=== PATIENT | male | born 1990 | race Hispanic/Latino ===

== ENCOUNTER 2019-04-15 22:37 | Emergency (ER) | payer SELFPAY ==
[2019-04-15] MEDS ORDERED: FENTANYL CITR 100 MCG/2 ML ONE (23:33)
--- NOTE | 2019-04-16 02:18 | ER ---
Nurse's Notes [facility] Name: Ananda Hager Age: 28 yrs Sex: Male : 1990 Arrival Date: 04/15/2019 Time: 22:38 Bed 20 Private MD: Diagnosis: Contusion of front wall of thorax;Contusion of left front wall of thorax Presentation: 04/15 22:48 Presenting complaint: Patient states: Truck fell on patient a couple of days ago. Pt dm5 refused treatment at the time. Pain in chest and left arm since then but worse today after the patient sneezed for the first time since the incident. Transition of care: patient was not received from another setting of care. Onset of symptoms was April 13, 2019. Risk Assessment: Do you want to hurt yourself or someone else? Patient reports no desire to harm self or others. Initial Sepsis Screen: Does the patient meet any 2 criteria? No. Patient's initial sepsis screen is negative. Does the patient have a suspected source of infection? No. Patient's initial sepsis screen is negative. Care prior to arrival: None. 22:48 Method Of Arrival: Ambulatory dm5 22:48 Acuity: SILVIA 3 dm5 Triage Assessment: 23:00 General: Appears uncomfortable, obese, Behavior is calm, cooperative. EENT: No deficits cr4 noted. Neuro: No deficits noted. Denies weakness blurred vision dizziness, numbness headache. Cardiovascular: Reports chest pain, shortness of breath, Denies fatigue, lightheadedness, nausea, palpitations, Heart tones S1 S2 Capillary refill < 3 seconds Pulses are all present. Respiratory: Reports shortness of breath pain with cough pain with movement pain with respiration Airway is patent Trachea midline Respiratory effort is even, labored, shallow, Respiratory pattern is regular, Breath sounds are clear bilaterally. GI: No deficits noted. : No deficits noted. : No signs and/or symptoms were reported regarding the genitourinary system. Derm: small scrap to left lower chest. Musculoskeletal: Reports pain in chest. Historical: - Allergies: 04/16 00:08 No Known Allergies; cr4 - Home Meds: 00:08 None [Active]; cr4 - PMHx: 00:08 None; cr4 - PSHx: 00:08 None; cr4 - Immunization history:: Adult Immunizations unknown. - Social history:: Smoking status: Patient uses tobacco products, smokes one pack cigarettes per day. - Ebola Screening: : No symptoms or risks identified at this time. Screenin:23 Abuse screen: Denies threats or abuse. Nutritional screening: No deficits noted. cr4 Tuberculosis screening: No symptoms or risk factors identified. Fall Risk None identified. Assessment: 04/15 23:00 General: Appears uncomfortable, well groomed, Behavior is calm, cooperative. Pain: Pain cr4 radiates to mid chest to left chest Pain currently is 8 out of 10 on a pain scale. Quality of pain is described as aching, stabbing, Pain began since 1100 today after sneezing. Is intermittent, Alleviated by rest, Aggravated by increased activity, deep breathing, left arm movment. Neuro: No deficits noted. Level of Consciousness is awake, alert, obeys commands, Oriented to person, place, time, situation, Appropriate for age Foil Operator are equal bilaterally Denies weakness dizziness, numbness. Cardiovascular: No deficits noted. Denies fatigue, lightheadedness, nausea, syncope, vomiting, Heart tones S1. Respiratory: Reports shortness of breath at rest pain with movement pain with respiration Airway is patent Trachea midline Respiratory effort is labored, asymmetrical, shallow, Respiratory pattern is regular, Breath sounds are clear bilaterally. Onset: The symptoms/episode began/occurred today. GI: Reports constipation, since 2 days ago. : No deficits noted. Denies burning with urination. EENT: No deficits noted. Derm: Skin temperature is warm scrap to left lower chest. Musculoskeletal: Capillary refill < 3 seconds. 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 cr4 00:23 Reassessment: No changes from previously documented assessment. Patient and/or family cr4 updated on plan of care and expected duration. Pain level reassessed. Patient is alert, oriented x 3, equal unlabored respirations, skin warm/dry/pink. 01:13 Reassessment: No changes from previously documented assessment. Patient and/or family cr4 updated on plan of care and expected duration. Pain level reassessed. Patient is alert, oriented x 3, equal unlabored respirations, skin warm/dry/pink. 02:30 Reassessment: In to check in the patient after Dr. Holm updated the patient. The cr4 patient was not in the room or in the bathroom. All his leads and wires had been pulled off. No IV was found in in room. Dr. Holm and charge nurse where notified. The patients cell was called with no answer. Vital Signs: 04/15 22:53 BP 134 / 87; Pulse 102; Resp 16; Temp 98.3(O); Pulse Ox 97% ; lt1 23:30 BP 126 / 85; Pulse 93; Resp 18; Pulse Ox 95% ; Pain 0/10; cr4 04/16 01:13 BP 126 / 81; Pulse 77; Resp 16; Pulse Ox 97% ; Pain 8/10; cr4 ED Course: 04/15 22:38 Patient arrived in ED. do 22:43 Vladiimr Holm MD is Attending Physician. 22:51 Triage completed. dm5 23:24 Inserted saline lock: 20 gauge in right antecubital area, using aseptic technique. cr4 04/16 00:23 Patient has correct armband on for positive identification. Bed in low position. Side cr4 rails up X2. Pulse ox on. notified CT of [place] lab results. 00:43 No provider procedures requiring assistance completed. cr4 01:07 CT Chest W/ Con In Process Unspecified. EDMS 02:15 patient left without nurse or tech taking IV out, No IV was found in the room. cr4 Administered Medications: 04/15 23:24 Drug: fentaNYL (PF) 50 mcg Route: IVP; Site: right antecubital; cr4 04/16 00:00 Follow up: Response: No adverse reaction; Other; pain unchanged patients refused more cr4 pain medication. Intake: Outcome: 02:17 Discharge ordered by . 02:28 Patient left the ED. cr4 Signatures: Dispatcher [employer] EDMS Tara Alexander RN RN dm5 Asha Eldridge RN RN cr4 Bianca Gonzalez Gregory, MD MD Carole Lugo 1 Corrections: (The following items were deleted from the chart) 00:18 00:08 General: Appears uncomfortable, obese, Behavior is calm, cooperative, cr4 cr4 00:18 00:08 EENT: No deficits noted. cr4 cr4 00:18 00:08 Neuro: No deficits noted. Denies weakness blurred vision dizziness, numbness cr4 headache cr4 00:18 00:08 Cardiovascular: Reports chest pain, shortness of breath, Denies fatigue, cr4 lightheadedness, nausea, palpitations, Heart tones S1 S2 Capillary refill < 3 seconds Pulses are all present. cr4 00:18 00:08 Respiratory: Reports shortness of breath pain with cough pain with movement pain cr4 with respiration Airway is patent Trachea midline Respiratory effort is even, labored, shallow, Respiratory pattern is regular, Breath sounds are clear bilaterally. cr4 00:18 00:08 GI: No deficits noted. cr4 cr4 00:18 00:08 : No deficits noted. cr4 cr4 00:18 00:08 : No signs and/or symptoms were reported regarding the genitourinary system. cr4cr4 00:18 00:08 Derm: small scrap to left lower chest. cr4 cr4 00:18 00:08 Musculoskeletal: Reports pain in chest cr4 cr4
--- NOTE | 2019-04-16 02:18 | EDPHYS ---
Physician Documentation [facility] Name: Annada Hager Age: 28 yrs Sex: Male : 1990 Arrival Date: 04/15/2019 Time: 22:38 Bed 20 Private MD: ED Physician Vladimir Holm HPI: 04/16 02:25 This 28 yrs old Male presents to ER via Ambulatory with complaints of Chest gs Pain, Constipation, Chest Pain From Injury. 02:26 The patient or guardian reports chest pain that is located primarily in the anterior gs chest wall. Onset: The symptoms/episode began/occurred 2 day(s) ago. 02:26 Associated signs and symptoms: Pertinent negatives: shortness of breath. The chest pain gs is described as sharp. Duration: The patient or guardian reports a single episode, that is still ongoing. Severity of pain: At its worst the pain was moderate in the emergency department the pain is unchanged. part of car fell on chest, darcie slipped. Historical: - Allergies: 00:08 No Known Allergies; cr4 - Home Meds: 00:08 None [Active]; cr4 - PMHx: 00:08 None; cr4 - PSHx: 00:08 None; cr4 - Immunization history:: Adult Immunizations unknown. - Social history:: Smoking status: Patient uses tobacco products, smokes one pack cigarettes per day. - Ebola Screening: : No symptoms or risks identified at this time. ROS: 02:26 All other systems are negative. gs Exam: 02:32 Head/Face: Normocephalic, atraumatic. Eyes: Pupils equal round and reactive to light, gs extra-ocular motions intact. Lids and lashes normal. Conjunctiva and sclera are non-icteric and not injected. Cornea within normal limits. Periorbital areas with no swelling, redness, or edema. ENT: Nares patent. No nasal discharge, no septal abnormalities noted. Tympanic membranes are normal and external auditory canals are clear. Oropharynx with no redness, swelling, or masses, exudates, or evidence of obstruction, uvula midline. Mucous membranes moist. Neck: Trachea midline, no thyromegaly or masses palpated, and no cervical lymphadenopathy. Supple, full range of motion without nuchal rigidity, or vertebral point tenderness. No Meningismus. Cardiovascular: Regular rate and rhythm with a normal S1 and S2. No gallops, murmurs, or rubs. Normal PMI, no JVD. No pulse deficits. Respiratory: Lungs have equal breath sounds bilaterally, clear to auscultation and percussion. No rales, rhonchi or wheezes noted. No increased work of breathing, no retractions or nasal flaring. Abdomen/GI: Soft, non-tender, with normal bowel sounds. No distension or tympany. No guarding or rebound. No evidence of tenderness throughout. Back: No spinal tenderness. No costovertebral tenderness. Full range of motion. Skin: Warm, dry with normal turgor. Normal color with no rashes, no lesions, and no evidence of cellulitis. MS/ Extremity: Pulses equal, no cyanosis. Neurovascular intact. Full, normal range of motion. Neuro: Awake and alert, GCS 15, oriented to person, place, time, and situation. Cranial nerves II-XII grossly intact. Motor strength 5/5 in all extremities. Sensory grossly intact. Cerebellar exam normal. Normal gait. 02:32 Constitutional: The patient appears alert, awake. 02:32 Chest/axilla: Palpation: tenderness, that is severe, of the anterior aspect of left upper chest, that totally reproduces the patient's complaints. 02:32 ECG was reviewed by the Attending Physician. Vital Signs: 04/15 22:53 BP 134 / 87; Pulse 102; Resp 16; Temp 98.3(O); Pulse Ox 97% ; lt1 23:30 BP 126 / 85; Pulse 93; Resp 18; Pulse Ox 95% ; Pain 0/10; cr4 04/16 01:13 BP 126 / 81; Pulse 77; Resp 16; Pulse Ox 97% ; Pain 8/10; cr4 MDM: 04/15 23:05 Patient medically screened. 04/16 02:32 Differential diagnosis: Blunt Chest Trauma Chest Wall Contusion Chest Wall Injury gs Pneumothorax. Data reviewed: vital signs, nurses notes, EKG, radiologic studies. Counseling: I had a detailed discussion with the patient and/or guardian regarding: the historical points, exam findings, and any diagnostic results supporting the discharge/admit diagnosis, radiology results, the need for outpatient follow up. Counseling: I had a detailed discussion with the patient and/or guardian regarding: the presence of at least one elevated blood pressure reading (>120/80) during this emergency department visit. Response to treatment: the patient's symptoms have markedly improved after treatment, and as a result, I will discharge patient. Special discussion: I have referred the patient to see his PCP for further evaluation of high blood pressure. 04/15 23:09 Order name: Creatinine for Radiology; Complete Time: 00:02 gs 04/15 23:09 Order name: CT Chest W/ Con gs EC:32 Rate is 107 beats/min. Rhythm is regular. MI interval is normal. QRS interval is gs normal. T waves are Normal. No ST changes noted. Clinical impression: Sinus tachycardia. Interpreted by me. Administered Medications: 04/15 23:24 Drug: fentaNYL (PF) 50 mcg Route: IVP; Site: right antecubital; cr4 04/16 00:00 Follow up: Response: No adverse reaction; Other; pain unchanged patients refused more cr4 pain medication. Disposition: 04/16/19 02:17 Discharged to Home. Impression: Contusion of front wall of thorax, Contusion of left front wall of thorax. - Condition is Stable. - Discharge Instructions: Chest Contusion, Adult. - Medication Reconciliation Form, Thank You Letter, Antibiotic Education, Prescription Opioid Use form. - Follow up: Private Physician; When: 2 - 3 days; Reason: Re-evaluation by your physician. Signatures: Dispatcher [employer] Asha Greenberg RN RN cr4 Vladimir Holm MD MD gs Corrections: (The following items were deleted from the chart) 02:28 02:17 04/16/2019 02:17 Discharged to Home. Impression: Contusion of front wall of cr4 thorax; Contusion of left front wall of thorax. Condition is Stable. Forms are Medication Reconciliation Form, Thank You Letter, Antibiotic Education, Prescription Opioid Use. Follow up: Private Physician; When: 2 - 3 days; Reason: Re-evaluation by your physician. gs
--- NOTE | 2019-04-16 22:16 | EKG ---
Test Date: 2019-04-15 Test Time: 22:47:37 Health Actuary: VELASQUEZT MEASUREMENT RESULTS: Intervals: Rate: 107 MI: 140 QRSD: 88 QT: 328 QTc: 437 [place]: P: 34 MI: 140 QRS: 29 T: 20 INTERPRETIVE STATEMENTS: Sinus tachycardia Otherwise normal ECG No previous ECG available for comparison Electronically Signed On 04-16-19 22:15:23 CDT by Merlin Andre
--- NOTE | 2019-04-18 13:14 | RAD REPORT ---
EXAM DESCRIPTION: CT Thorax W/ Con CLINICAL HISTORY: 28 years Male Subacute trauma; Pain TECHNIQUE: Contiguous axial images obtained through the chest following IV contrast. Coronal and s agittal reformatted images provided. This CT exam was performed according to our departmental dose-optimization program, which includes on e or more of the following dose reduction techniques: automated exposure control, adjustment of the m A and/or kV according to patient size, and/or use of iterative reconstruction technique. COMPARISON: No prior exams provided for comparison. FINDINGS: There is a subcutaneous contusion anterior to the inferior sternum. No soft tissue gas, fo reign body, or discrete hematoma. There is no acute fracture in the chest or thoracic spine. In particular, there is no sternal fract ure. There is no mediastinal hematoma, pericardial effusion, pleural effusion, or pneumothorax. The hear t is normal in size and there is no aortic aneurysm or dissection. Aside from mild dependent atelectasis, the lungs are clear. The central airways are patent. No enlarged mediastinal lymph nodes. Steatosis of the liver and calcified granulomata in the spleen. No acute upper abdominal abnormality. IMPRESSION: Subcutaneous contusion anterior to the inferior sternum without acute chest wall fractur e. No acute cardiopulmonary abnormality. Electronically signed by: Valentina Wallace MD 04/16/2019 1:15 AM CDT Due to temporary technical issues with the PACS/Fluency reporting system, reports are being signed by the in house radiologist as a courtesy to ensure prompt reporting. The interpreting radiologist is f ully responsible for the content of the report.
== END 2019-04-16 02:28 | disposition home or self-care (01) ==
LOC: ER 22:37
DX: S20.212A Contusion of left front wall of thorax, initial encounter (principal); W22.8XXA Striking against or struck by other objects, initial encounter; Y93.89 Activity, other specified; Y92.9 Unspecified place or not applicable; F17.210 Nicotine dependence, cigarettes, uncomplicated
CPT/HCPCS: 36415; 71260; 93005; 96374; 99284; J3010; Q9967

== ENCOUNTER 2022-09-11 14:50 | Emergency (ER) | payer SELFPAY ==
[2022-09-11 16:30] LABS: SARS-COV-2 RT PCR NEGATIVE (NEGATIVE)
[2022-09-11] MEDS ORDERED: HYDROCODONE/CHLORPHEN 5 ML/OSYR ONE (16:30)
--- NOTE | 2022-09-11 17:15 | RAD REPORT ---
EXAM DESCRIPTION: RAD - Chest Pa And Lat (2 Views) - 09/11/2022 4:58 pm CLINICAL HISTORY: CONGESTION Chest pain. COMPARISON: No comparisons FINDINGS: The lungs are clear. The heart is normal in size. Small hiatal hernia. No displaced fractu res. IMPRESSION: No acute or concerning finding suspected.
--- NOTE | 2022-09-11 17:16 | EDPHYS ---
Physician Documentation [facility] Name: Ananda Hager Age: 31 yrs Sex: Male : 1990 Arrival Date: 09/11/2022 Time: 14:52 Bed DIS1 Private MD: ED Physician Quentin Lopes HPI: 09/11 15:49 This 31 yrs old Male presents to ER via Unassigned with complaints of Flu snw Symptoms. 15:49 The patient or guardian reports cough, flu symptoms, low-grade fever, myalgias, no snw appetite. Onset: The symptoms/episode began/occurred suddenly, 3 day(s) ago, and became persistent. Associated signs and symptoms: Pertinent positives: fever, nausea, sore throat, cough. Severity of symptoms: At their worst the symptoms were moderate. The patient has not experienced similar symptoms in the past. The patient has not recently seen a physician. Historical: - Allergies: 16:25 No Known Allergies; jl7 - Home Meds: 16:25 None [Active]; jl7 - PMHx: 16:25 None; jl7 - PSHx: 16:25 None; jl7 - Immunization history:: Client reports having NOT received the Covid vaccine. - Social history:: Smoking status: Patient denies any tobacco usage or history of. ROS: 15:48 Eyes: Negative for injury, pain, redness, and discharge, ENT: Negative for injury, snw pain, and discharge, Neck: Negative for injury, pain, and swelling, Cardiovascular: Negative for chest pain, palpitations, and edema. 15:48 Abdomen/GI: Negative for abdominal pain, nausea, vomiting, diarrhea, and constipation, Back: Negative for injury and pain, : Negative for injury, bleeding, discharge, and swelling, MS/Extremity: Negative for injury and deformity, Skin: Negative for injury, rash, and discoloration. 15:48 Constitutional: Positive for body aches, chills, fatigue, fever, malaise, poor PO intake. 15:48 Respiratory: Positive for cough, with no reported sputum. 15:48 Neuro: Positive for headache, fatigue. Exam: 15:46 Head/Face: Normocephalic, atraumatic. Eyes: Pupils equal round and reactive to light, snw extra-ocular motions intact. Lids and lashes normal. Conjunctiva and sclera are non-icteric and not injected. Cornea within normal limits. Periorbital areas with no swelling, redness, or edema. 15:46 Neck: Trachea midline, no thyromegaly or masses palpated, and no cervical lymphadenopathy. Supple, full range of motion without nuchal rigidity, or vertebral point tenderness. No Meningismus. Chest/axilla: Normal chest wall appearance and motion. Nontender with no deformity. No lesions are appreciated. Cardiovascular: Regular rate and rhythm with a normal S1 and S2. No gallops, murmurs, or rubs. Normal PMI, no JVD. No pulse deficits. 15:46 Abdomen/GI: Soft, non-tender, with normal bowel sounds. No distension or tympany. No guarding or rebound. No evidence of tenderness throughout. Back: No spinal tenderness. No costovertebral tenderness. Full range of motion. Skin: Warm, dry with normal turgor. Normal color with no rashes, no lesions, and no evidence of cellulitis. MS/ Extremity: Pulses equal, no cyanosis. Neurovascular intact. Full, normal range of motion. Neuro: Awake and alert, GCS 15, oriented to person, place, time, and situation. Cranial nerves II-XII grossly intact. Motor strength 5/5 in all extremities. Sensory grossly intact. Cerebellar exam normal. Normal gait. Psych: Awake, alert, with orientation to person, place and time. Behavior, mood, and affect are within normal limits. 15:46 Constitutional: The patient appears alert, awake, uncomfortable. 15:46 ENT: Nose: Nasal mucosa: edematous, Mouth: is normal, Posterior pharynx: erythema, that is moderate, Voice: is normal. 15:46 Respiratory: the patient does not display signs of respiratory distress, Respirations: normal, Breath sounds: bronchial sounds, that are mild, are heard diffusely, bronchitic cough. Vital Signs: 15:30 BP 130 / 91; Pulse 89; Resp 15; Temp 98.7; Pulse Ox 99% ; Weight 135.17 kg; Height 6 jl7 ft. 1 in. (185.42 cm); Pain 0/10; 15:30 Body Mass Index 39.32 (135.17 kg, 185.42 cm) jl7 MDM: 14:57 Patient medically screened. snw 17:16 Data reviewed: vital signs, nurses notes. Data interpreted: Pulse oximetry: on room air snw is 99 %. Interpretation: normal. Counseling: I had a detailed discussion with the patient and/or guardian regarding: the historical points, exam findings, and any diagnostic results supporting the discharge/admit diagnosis, lab results, radiology results, the need for outpatient follow up, to return to the emergency department if symptoms worsen or persist or if there are any questions or concerns that arise at home. Special discussion: I have referred the patient to see his PCP for further evaluation of high blood pressure. Based on the history and exam findings, there is no indication for further emergent testing or inpatient evaluation. I discussed with the patient/guardian the need to see the primary care provider for further evaluation of the symptoms. 09/11 15:41 Order name: COVID-19/FLU A+B; Complete Time: 16:31 ap3 09/11 16:33 Order name: Chest Pa And Lat (2 Views) XRAY; Complete Time: 17:16 snw Administered Medications: 16:29 Drug: Tussionex Pennkinetic ER (chlorpheniramine-hydrocodone) Suspension 5 ml Route: PO;jl7 17:00 Follow up: Response: No adverse reaction jl7 Disposition: 18:05 Co-signature as Attending Physician, Quentin Lopes MD. rn Disposition Summary: 09/11/22 17:15 Discharge Ordered Location: Home snw Condition: Stable snw Diagnosis - Acute bronchitis, unspecified snw Followup: snw - With: Emergency Department - When: As needed - Reason: Worsening of condition Followup: snw - With: Private Physician - When: 2 - 3 days - Reason: Recheck today's complaints, Continuance of care, Re-evaluation by your physician Discharge Instructions: - Discharge Summary Sheet snw - Acute Bronchitis, Adult snw - Rehydration, Adult snw Forms: - Work release form snw - Medication Reconciliation Form snw - Thank You Letter snw - Antibiotic Education snw - Prescription Opioid Use snw Prescriptions: - Zyrtec 10 mg Oral Tablet - take 1 tablet by ORAL route once daily As needed; 20 tablet; Refills: 0, snw Product Selection Permitted - Prednisone 20 mg Oral Tablet - take 2 tablets by ORAL route once daily for 5 days; 10 tablet; Refills: 0, snw Product Selection Permitted - Pepcid 20 mg Oral Tablet - take 1 tablet by ORAL route once daily; 20 tablet; Refills: 0, Product snw Selection Permitted - Tylenol-Codeine #3 300 mg-30 mg Oral - take 1 tablet by ORAL route 3 times per day; 18 tablet; Refills: 0, Product snw Selection Permitted Signatures: Dispatcher [employer] EDRachelle Chavis, DESIREE-C COSTUMER ASSISTANT-Csnw Quentin Lopes MD MD rn Stefania Soto RN RN jl7
--- NOTE | 2022-09-11 17:16 | ER ---
Nurse's Notes [facility] Name: Ananda Hager Age: 31 yrs Sex: Male : 1990 Arrival Date: 09/11/2022 Time: 14:52 Bed DIS1 Private MD: Diagnosis: Acute bronchitis, unspecified Presentation: 09/11 15:30 Chief complaint: Patient states: Cough, fever, sore throat x 4-5 days and "I need a jl7 note to go back to work.". 15:30 Coronavirus screen: Vaccine status: Patient reports being unvaccinated. cough unrelated jl7 to allergies, fever, Client presents with at least one sign or symptom that may indicate coronavirus-19. Standard/surgical mask placed on the client. Ebola Screen: No symptoms or risks identified at this time. Initial Sepsis Screen: Does the patient meet any 2 criteria? No. Patient's initial sepsis screen is negative. Does the patient have a suspected source of infection? No. Patient's initial sepsis screen is negative. Risk Assessment: Do you want to hurt yourself or someone else? Patient reports no desire to harm self or others. Onset of symptoms was September 07, 2022. Care prior to arrival: None. 15:30 Method Of Arrival: Ambulatory jl7 15:30 Acuity: SILVIA 4 jl7 Triage Assessment: 15:30 General: Appears in no apparent distress. uncomfortable, Behavior is calm, cooperative, jl7 appropriate for age. Pain: Denies pain. Historical: - Allergies: 16:25 No Known Allergies; jl7 - Home Meds: 16:25 None [Active]; jl7 - PMHx: 16:25 None; jl7 - PSHx: 16:25 None; jl7 - Immunization history:: Client reports having NOT received the Covid vaccine. - Social history:: Smoking status: Patient denies any tobacco usage or history of. Screenin:25 Abuse screen: Denies threats or abuse. Denies injuries from another. Nutritional jl7 screening: No deficits noted. Tuberculosis screening: No symptoms or risk factors identified. Fall Risk None identified. Vital Signs: 15:30 BP 130 / 91; Pulse 89; Resp 15; Temp 98.7; Pulse Ox 99% ; Weight 135.17 kg; Height 6 jl7 ft. 1 in. (185.42 cm); Pain 0/10; 15:30 Body Mass Index 39.32 (135.17 kg, 185.42 cm) jl7 ED Course: 14:52 Patient arrived in ED. as 14:56 Rachelle Epperson FNP-C [facility] snw 14:56 Quentin Lopes MD is Attending Physician. snw 15:30 Arm band placed on right wrist. jl7 15:40 Patient has correct armband on for positive identification. jl7 15:40 COVID swab sent to lab. Flu and/or RSV swab sent to lab. jl7 16:25 Triage completed. jl7 16:59 Chest Pa And Lat (2 Views) XRAY In Process Unspecified. EDMS 17:35 No provider procedures requiring assistance completed. Patient did not have IV access jl7 during this emergency room visit. Administered Medications: 16:29 Drug: Tussionex Pennkinetic ER (chlorpheniramine-hydrocodone) Suspension 5 ml Route: PO;jl7 17:00 Follow up: Response: No adverse reaction jl7 Medication: 16:25 VIS not applicable for this client. jl7 Outcome: 17:15 Discharge ordered by . snw 17:35 Discharged to home ambulatory. jl7 17:35 Condition: stable 17:35 Discharge instructions given to patient, Instructed on discharge instructions, follow up and referral plans. medication usage, Demonstrated understanding of instructions, follow-up care, medications, Prescriptions given X 4. 17:36 Patient left the ED. jl7 Signatures: Dispatcher [employer] EDMS Rachelle Epperson FNP-C FNP-CsnRamila Tracey Jahala, RN RN jl7
[2022-09-11 18:50] VITALS: BP 130/91; TEMP 98.7; O2SAT 99
== END 2022-09-11 17:36 | disposition home or self-care (01) ==
LOC: ER 14:50
DX: J20.9 Acute bronchitis, unspecified (principal); Z20.822 Contact with and (suspected) exposure to COVID-19
CPT/HCPCS: 0240U; 71046; 99284